=== PATIENT | male | born 2000 | race Caucasian/White ===

== ENCOUNTER 2021-06-30 17:56 | Emergency (ER) | payer SELFPAY ==
[~2021-06-30] VITALS: Ht 188 cm; Wt 70.3 kg
[2021-06-30 20:13] VITALS: BP 115/64
== END 2021-06-30 20:13 | disposition home or self-care (01) ==
LOC: ER 19:55
DX: R07.89 Other chest pain (principal); F17.210 Nicotine dependence, cigarettes, uncomplicated
CPT/HCPCS: 71046; 93005; 99283